=== PATIENT | female | born 1975 | race Caucasian/White ===

== ENCOUNTER 2022-08-22 08:51 | Day surgery (SDC) | payer MEDICAID, SELFPAY ==
--- NOTE | 2022-08-22 06:05 | ENDO_ITS ---
Date of service: 08/22/22 Time of Service: 11:23 Endoscopy Report DATE OF PROCEDURE: 08/22/22 PRE-OP DIAGNOSIS: Hx of Marginal Ulcer POST-OP DIAGNOSIS: other (normal stomach) PROCEDURE: EGD SURGEON: Niki Schmid ANESTHESIA TYPE: General:No Airway ESTIMATED BLOOD LOSS: 0 PATHOLOGY: none sent COMPLICATIONS: None DISPOSITION: same day INDICATIONS: Paradise is a 47-year-old female status post gastric bypass who was diagnosed with a marginal ulcer back in January of this year.? She was on omeprazole 20 mg until she ran out.? Her abdominal pain and bloating has now resolved.? Her exam is benign.? I do feel that she would benefit from another upper endoscopy to make sure that her marginal ulcer is healing or has healed completely.? I also think as she still continues to complain of some heartburn type symptoms that it would be beneficial for her to be on Carafate 3 times a day.? Marginal ulcers a lot of times are more due to bile reflux into the stomach then from too much acid.? The patient is in agreement with having another upper endoscopy done.? We reviewed the procedure and its complications.? Risks, benefits and complications have been reviewed. Complications include but are not limited to bleeding, pain, perforation, sore throat, aspiration, and adverse reaction to the medications.? Questions were entertained and answered to their satisfaction and they wished to proceed. No guarantees were given or implied. FINDINGS: Normal stomach and duodenum PROCEDURE DESCRIPTION: After informed consent was obtained the patient was take to the procedure room and placed in a supine position. Monitors were applied and a time out was done. The patients name, date of , procedure type, allergies to medicatio ns and metal in their body was reviewed. A bite block was placed and the patient was sedated. Once sedated and comfortable the gastroscope was advanced through the oropharynx which was grossly normal into the esophagus. The proximal and mid- esophagus were normal. In the distal esophagus there was no inflammation noted. The scope was advanced into the stomach, which was normal. The scope was advanced through the anastamosis into the efferent and affarent limbs of the duodenum. Both were normal. The ulcer seen on the prior EGD was completely healed. The scope was removed and the patient was woken up and taken back to [facility] in stable condition.
--- NOTE | 2022-08-22 06:06 | W.PM.DSUDISC ---
Discharge Plan Disposition Patient Disposition: HOME Condition: Good Discharge Details Reason For Visit: egd Attending Provider: Niki Schmid Primary Care Provider: Asiya Arthur Home Meds and New Rx's Prescriptions: Continued omeprazole 20 mg capsule,delayed release(DR/EC) 20 mg PO DAILY Qty: 90 3RF sucralfate [Carafate] 1 gram tablet 1 g PO TID Qty: 90 3RF celecoxib 200 mg capsule 200 mg PO BID clonazepam 1 mg tablet 1 mg PO QHS Rx Instructions: administer 30 minutes before bedtime trazodone 100 mg tablet 100 mg PO DAILY Discharge Instructions Additional Instructions: Findings: Normal Follow up: as needed Please call if you develop: fevers >101.5 Nausea or Vomiting Abdominal pain that is not transient Rectal bleeding that is more then a tbsp A hard abdomen and inability to pass gas DAY SURGERY UNIT POST ENDOSCOPY INSTRUCTIONS Instructions for everyone who is given Anesthesia: For your safety, please do the following for the next 24 Hours: a. Do not drive or operate dangerous equipment b. Do not drink alcohol beverages or use any recreational drugs for the first 24 hours or while taking pain medications. The medications in your body may have a reaction that can be dangerous. c. Do not make any important decisions or sign any important papers 1. Generally there are no restrictions on your activity after a day or so has gone by, but you may feel a bit fatigued for a few days. 2. After you arrive home you may have a light meal and return to a normal diet as you can tolerate it without feeling sick to your stomach. 3. After surgery, you may feel pain or discomfort. This should be only transient, but if it persists please contact your doctor. 4. If there are any questions regarding the findings of your procedure, please feel free to contact your doctor. 6. If you are unable to contact your doctor with a problem, contact the hospital at [phone]. 7. Continue all your regular medications unless directed otherwise. I understand the above instructions and have no questions. Signature of Patient or Responsible Adult Escort Date/Time Name of Responsible Adult Escort Signature of Nurse Date/Time Activity:: Activity as Tolerated Diet:: As Tolerated Discharge Orders Discharge Orders: Discharge Order (Routine); Ordered 08/22/22 Ordered By: Niki Schmid
--- NOTE | 2022-08-22 06:37 | W.ANESPRE ---
General Info Date of Service Date Performed: 08/22/22 Height: 5 ft 7.5 in Weight: 79.333 kg Body Mass Index (BMI): 26.9 Surgical Procedure: Operation Date: 08/22/22 10:35 Proposed Procedure Side Surgeon p Gastroscopy Niki Schmid MD Meds Allergies and Home Medications Allergies Allergy/AdvReac Type Severity Reaction Status Date / Time prochlorperazine Allergy Severe Anaphylaxis Verified 08/21/22 15:36 aripiprazole Allergy Intermediate Psychosis Verified 08/21/22 15:36 carisoprodol Allergy Unknown Verified 08/21/22 15:36 codeine Allergy Unknown Verified 08/21/22 15:36 desvenlafaxine Allergy Unknown Verified 08/21/22 15:36 gabapentin Allergy Unknown Verified 08/21/22 15:36 ketorolac Allergy Unknown Verified 08/21/22 15:36 latex Allergy Unknown Verified 08/21/22 15:36 lithium Allergy Unknown Verified 08/21/22 15:36 morphine Allergy Unknown Verified 08/21/22 15:36 risperidone Allergy Unknown Verified 08/21/22 15:36 sumatriptan Allergy Unknown Verified 08/21/22 15:36 topiramate Allergy Unknown Verified 08/21/22 15:36 vancomycin Allergy Unknown Verified 08/21/22 15:36 Home Medication Medication Instructions Recorded celecoxib 200 mg capsule 200 mg PO BID 06/22/22 clonazepam 1 mg tablet 1 mg PO QHS 06/22/22 trazodone 100 mg tablet 100 mg PO DAILY 06/22/22 omeprazole 20 mg capsule,delayed 20 mg PO DAILY #90 caps 08/14/22 release sucralfate 1 gram tablet (Carafate) 1 g PO TID #90 tabs 08/14/22 Current Visit Medications: Current Medications Generic Name Dose Route Start Last Admin Trade Name Freq PRN Reason Stop Dose Admin Hyoscyamine Sulfate 0.125 mg 08/22/22 06:06 Hyoscyamine 0.125 Mg Sl/Oral/Chew SL DIRECTED PRN Ringer's Solution 1,000 mls @ 80 mls/hr 08/22/22 06:00 IV 09/20/22 23:59 INFUSION [facility] IV Miscellaneous Supplies 1 each 08/22/22 06:00 Iv Access IV 09/20/22 23:59 DIRECTED [facility] Ondansetron HCl 4 mg 08/22/22 06:06 Ondansetron 4 Mg/2 Ml Vial IVP Q4H PRN PRN Nausea / Vomiting Sodium Chloride 0 ml 08/22/22 06:00 Normal Saline Flush 10 Ml Syr IV 09/20/22 23:59 PRN PRN Sodium Chloride 0 ml 08/22/22 06:00 Normal Saline 10 Ml Vial IJ 09/20/22 23:59 DIRECTED PRN Sterile Water 0 ml 08/22/22 06:00 Water,Injection,Sterile 10 Ml Vial IJ 09/20/22 23:59 DIRECTED PRN PFSH Active Problems Active Problems: Problem Status Onset Code Peptic ulcer K27.9 Mass of stomach K31.89 Marginal ulcer K28.9 Medical History Medical History ADHD Alopecia Anemia in chronic illness Atopic dermatitis Bipolar disease, chronic Borderline personality disorder Chronic low back pain Chronic pain Constipation Diabetes Discharge from nipple Essential hypertension [place] Family history of colon cancer Family history of malignant neoplasm of ovary Hemorrhoids Hernia of abdominal cavity Herpes simplex Insomnia Migraine with aura Morbid obesity Neck pain Neurogenic dysfunction of the urinary bladder Nicotine dependence Onychomycosis Opioid use Plantar fascial fibromatosis Pneumonia Proctitis PTSD (post-traumatic stress disorder) Suicidal ideation Umbilical pain Visual impairment Medical History Comments:: pt. states 15 years ago awareness unes anestheisa with ECT procedure Surgical History Surgical History H/O bariatric surgery (~11/2019) H/O bilateral oophorectomy (~01/2015) H/O section (~11/2002) H/O esophagogastroduodenoscopy (~01/2022) 2014 H/O exploratory laparotomy (~05/2014) H/O hernia repair H/O tubal ligation H/O: hysterectomy (~02/2011) History of colonoscopy (~01/2022) 2016 Hx of tonsillectomy Tobacco Smoking/Tobacco Use Status: Former Tobacco Use Alcohol Alcohol Intake: current Alcohol intake frequency: holidays/special occasions only Substance Use Substance use: Daily Substance use type: marijuana Vital Signs and Lab Results Lab Results Blood Type / Crossmatch: No Data to Display Complete Blood Count: No Data to Display Complete Metabolic Panel: No Data to Display Liver Function Panel: No Data to Display Coagulation Panel: No Data to Display Cardiac Panel: No Data to Display Arterial Blood Gas: No Data to Display Venous Blood Gas: No Data to Display Pancreas Panel: No Data to Display Thyroid Panel: No Data to Display Infectious Disease: No Data to Display Blood Cultures: No Data to Display Toxicology Panel: No Data to Display Panel: No Data to Display Imaging and Studies Imaging and Studies Study information below may be from another EMR and interpreted by another provider. Please see original notes in EMR for more complete details. Echocardiogram Summary: 08/2021: LVEF 68%, no hemodynamically sig valvular dz. MRI Summary: 08/2021 cardiac: LVEF 54%, RVEF 52%, no cardiac mass or thrombus seen. Anesthesia Assessment and Plan Anesthesia History Personal History: Awareness Under Anesthesia Family History: No Family History of Anesthesia Complications Exercise Tolerance Exercise Tolerance: Metabolic Equivalents>4 Cardiac & Pulmonary Exam Cardiac Exam: Normal S1/S2 Heart Sounds Pulmonary Exam: Clear Bilateral Breath Sounds Implantable Cardiac Device Does patient have a Pacemaker or an ICD?: No Airway Exam Known Difficult Airway: No Mallampati Class: 2 Mouth Opening: Normal (> 3cm) Thyromental Distance: Greater than 3 cm Neck Range of Motion: Full ROM Neck Circumference: Normal Teeth Condition: Normal Dentition ASA Classification ASA Score: ASA 2 Emergency Case?: No NPO Status NPO Status: NPO Clears >2 hours, Solids >8 hours Status Status: History of Hysterectomy Anesthesia Plan Resuscitation Status: Full Code Anesthesia Technique: General Anesthesia Airway Planned: Natural Airway Monitors Used: Standard Monitors Preoperative Comments:: 47 yo female with multiple allergies s/p gatric bypass with marginal ulcer here for EGD. Sig PMHx: ADHD, boarderline personality/bipolar/PTSD, back pain, HTN, DM 5.5 A1c. Previous Anes: - Difficult mask ventilation (two hands), mac 3 grade 1.
[2022-08-22 09:22] VITALS: BP 126/82; PULSE 68; RESP 198; TEMP 36.5; O2SAT 99
[2022-08-22] MEDS: Lactated Ringers 1,000 ML 80 ML IV (09:42)
[2022-08-22 10:12] VITALS: BMI 26.9
[2022-08-22 11:24] VITALS: BP 139/74; PULSE 90; RESP 18; TEMP 36.3; O2SAT 100
[2022-08-22] MEDS: Ondansetron 4 MG/2 ML VIAL IVP (11:51)
[2022-08-22 11:52] VITALS: BP 151/76; PULSE 67; RESP 18; TEMP 36.4; O2SAT 100
--- NOTE | 2022-08-22 12:33 | W.ANESPOSTOP ---
Postoperative Evaluation Date, Time and Location Date Performed: 08/22/22 Time Performed: 12:33 Patient Location: Day Surgery Unit Vital Signs Most Recent Imported Vital Signs: Most Recent Vital Signs Temp Pulse Resp BP Pulse Ox 36.4 C L 67 18 151/76 H 100 08/22/22 11:52 08/22/22 11:52 08/22/22 11:52 08/22/22 11:52 08/22/22 11:52 Pain Score Most Recent Pain Score: Most Recent Pain Score Pain Level 2 08/22/22 11:52 Assessment Mental Status: Awake (Alert & Oriented to Patient Baseline) Airway and Respiratory Function: Patent airway with normal (patient baseline) respiratory exam Cardiovascular Function: Hemodynamically Stable Hydration Status: Adequately Hydrated Nausea & Vomiting: No Nausea or Vomiting Pain: Pt. Denies Any Pain Peripheral Nerve Block: Patient did not receive a nerve block
== END 2022-08-22 12:10 | disposition home or self-care (01) ==
PROVIDERS: PCP Physician Assistant Medical; Visit Provider Surgery
PROC: 0DJ68ZZ Inspection of Stomach, Via Natural or Artificial Opening Endoscopic (ICD-10-PCS; CPT 43235; principal; 2022-08-22 10:30)
DX: Z09 Encounter for follow-up examination after completed treatment for conditions other than malignant neoplasm (principal); Z98.84 Bariatric surgery status; Z87.11 Personal history of peptic ulcer disease
CPT/HCPCS: 43235; J2405; J2704